=== PATIENT | female | born 1940 | race Caucasian/White ===

== ENCOUNTER 2017-09-26 08:10 | Outpatient (CLI) | payer MEDICARE, OTHER ==
[~2017-09-26] VITALS: Ht 160 cm; Wt 95.5 kg
[2017-09-26 09:14] VITALS: Ht 160 cm; Wt 95.5 kg
== END 2017-09-26 15:00 | disposition home or self-care (01) ==
LOC: D.OPS 08:10
DX: D64.9 Anemia, unspecified (principal)

== ENCOUNTER → 2019-07-30 14:17 | Outpatient (CLI) | payer MEDICARE, OTHER ==
[2017-09-26 09:14] VITALS: BMI 37.2
[2019-07-30 16:13] LABS: HEMATOCRIT 33.9 % (36.0-48.0); MCHC 32.4 g/dL (31.0-37.0); MCV 95.5 fL (80.0-100.0); RBC 3.55 10x6/uL (4.00-5.40); RDW 17.9 % (11.5-14.5); WBC 4.8 10x3/uL (4.8-10.8)
[2019-07-30 16:19] LABS: PLATELET COUNT 96 10x3/uL (130-400)
[2019-07-30 16:27] LABS: EOSINOPHILS 2 % (0-7); LYMPHOCYTES 11 % (15-50); NEUTROPHILS 88 % (40-80); PLATELET ESTIMATE DECREASED
== END | disposition home or self-care (01) ==
LOC: D.LABREF 14:17
PROVIDERS: ATTEND Legal Medicine
DX: D50.8 Other iron deficiency anemias (principal); E87.1 Hypo-osmolality and hyponatremia